=== PATIENT | female | born 1980 | race Caucasian/White ===

== ENCOUNTER 2017-03-12 21:44 | Emergency (ER) | payer SELFPAY ==
--- NOTE | 2017-03-12 22:08 | ED Physician Documentation ---
Sore Throat/Dental Pain - HISTORIAN Historian: patient - HPI Stated Complaint: dental pain Chief Complaint: Dental Pain Onset: days ago (2 days) Context: Fractured Tooth Associated Symptoms: fever, chills. denies: sore throat Worsened By: other (opening mouth, ) Further Comments: yes (Patient states that she has had pain in the left bottom wisdom tooth) - ROS CONST: no problems - PAST HX Past History: none Other History: none Immunizations: referred to PCP Allergies/Adverse Reactions: Allergies Allergy/AdvReac Type Severity Reaction Status Date / Time ketorolac tromethamine Allergy Verified 03/12/17 21:53 [From Toradol] Penicillins Allergy Verified 03/12/17 21:53 tramadol Allergy Verified 03/12/17 21:53 codeine AdvReac Nausea/Vomi Verified 03/12/17 21:53 ting Home Medications: Ambulatory Orders Medication Instructions Recorded Clindamycin HCl [Cleocin] 300 mg PO QID #40 capsule 03/12/17 HYDROcodone /APAP 5/325 [Beverly 1 each PO Q6 PRN #20 tablet 03/12/17 5/325] - SOCIAL HX Smoking History: less than 1 pack/day (06/16 ppd) Alcohol Use: none Drug Use: none - FAMILY HX Family History: Yes (CAD, DM) - VITAL SIGNS Vital Signs: Vital Signs Temp Pulse Resp BP Pulse Ox 98.6 F 87 16 125/84 100 03/12/17 21:45 03/12/17 21:45 03/12/17 21:45 03/12/17 21:45 03/12/17 21:45 - REVIEWED ASSESSMENTS Nursing Assessment Reviewed: Yes Vitals Reviewed: Yes Dental Pain Physical Exam - EXAM General Appearance: no acute distress, alert, mild distress Mouth/Throat: lips nml, pharynx nml, voice nml, dental tenderness, gum swelling around teeth. No: pharyngeal erythema Respiratory: no resp. distress, breath sounds nml, respiratory distress CVS: reg. rate & rhythm, heart sounds nml Abdomen: soft, no organomegaly Skin: warm/dry, normal color Neuro/Psych: No: weakness, numbness Discharge Clincal Impression: Infected dental carries Referrals: Primary Doctor,No [Primary Care Provider] - 2 Days Additional Instructions: GET IN TO SEE A DENTIST. Take clindamycin 4 times a day and continue taking Alevel 220mg two tablets twice a day with food. Supplement with hydrocodone as needed for pain. Condition: Stable Disposition: 01 HOME, SELF-CARE Decision to Admit: NO Date of Decison to Admit: 03/12/17 Decision Time: 22:21
[2017-03-12] MEDS ORDERED: CLINDAMYCIN HCL 150 MG CAPSULE PO ONE (22:12)
[2017-03-12] MEDS ORDERED: HYDROcodone /APAP 5/325 1 EACH TABLET PO ONE (22:12)
[2017-03-12 22:31] VITALS: BP 127/62
== END 2017-03-12 22:30 | disposition home or self-care (01) ==
LOC: ED 21:44
DX: K02.9 Dental caries, unspecified (principal)
CPT/HCPCS: A9270 ×2; 99283